=== PATIENT | male | born 1950 | race Caucasian/White ===

== ENCOUNTER 2019-05-25 18:28 | Emergency (ER) | payer MEDICARE, OTHER ==
--- NOTE | 2019-05-25 20:04 | EDM.PDOC ---
ED HPI GENERAL MEDICAL PROBLEM - General Chief Complaint: Upper Extremity Injury/Pain Stated Complaint: FALL, RIGHT RIB PAIN Time Seen by Provider: 05/25/19 19:45 Source of Information: Reports: Patient, Family History Limitations: Reports: No Limitations - History of Present Illness INITIAL COMMENTS - FREE TEXT/NARRATIVE: 68-year-old male with a history of right rib fractures last September resulting in a pneumothorax and a chest tube presents with a reinjury of his right chest when he slipped in the bathtub 2 days ago. He's having significant discomfort of his right lateral chest, pleuritic pain but no significant shortness of breath. His just found out about the injury today and brought him in to have him assessed. No nausea or vomiting, no cough. Onset: Sudden Duration: Day(s): (2 days ago) Location: Reports: Chest (Right lateral chest) Associated Symptoms: Reports: Chest Pain (Right lateral area), Shortness of Breath (Some pleuritic pain but no shortness of breath). Denies: Confusion, Cough, Nausea/Vomiting Right Middle Thoracic Pain Score (Numeric/FACES): 8 - Related Data Allergies Allergy/AdvReac Type Severity Reaction Status Date / Time No Known Allergies Allergy Verified 05/25/19 19:39 Home Meds: Home Meds Finasteride 5 mg PO DAILY 05/25/19 [History] Lisinopril 20 mg PO DAILY 05/25/19 [History] Metoprolol Succinate 100 mg PO DAILY 05/25/19 [History] Tamsulosin [Tamsulosin 24 Hr] 0.4 mg PO DAILY 05/25/19 [History] carBAMazepine [Epitol] 200 mg PO TID 05/25/19 [History] Past Medical History HEENT History: Reports: Impaired Vision Cardiovascular History: Reports: Hypertension Respiratory History: Reports: Pneumothorax Other Gastrointestinal History: C diff Musculoskeletal History: Reports: Back Pain, Chronic, Fracture Other Musculoskeletal History: rib fractures, ankle fracture Neurological History: Reports: Head Trauma, Seizure Other Neuro History: dementia Psychiatric History: Reports: Dementia - Infectious Disease History Infectious Disease History: Reports: C-Difficile - Past Surgical History GI Surgical History: Reports: Colonoscopy Other GI Surgeries/Procedures: fecal implant Musculoskeletal Surgical History: Reports: Carpal Tunnel Other Musculoskeletal Surgeries/Procedures:: lower back surgery, Social & Family History - Tobacco Use Smoking Status *Q: Former Smoker Years of Tobacco use: 2 Used Tobacco, but Quit: Yes Month/Year Tobacco Last Used: 11/1959 - Caffeine Use Caffeine Use: Reports: Coffee, Soda Caffeine Use Comment: seldom coffee use, daily diet soda use - Recreational Drug Use Recreational Drug Use: No Review of Systems - Review of Systems Review Of Systems: See Below Constitutional: Denies: Fever Respiratory: Reports: Pleuritic Chest Pain. Denies: Shortness of Breath, Cough Cardiovascular: Reports: No Symptoms Skin: Denies: Bruising (No significant bruising over injured area) Neurological: Reports: Other (Patient is struggling with worsening dementia) ED EXAM, GENERAL - Physical Exam Exam: See Below Exam Limited By: No Limitations General Appearance: Alert, No Apparent Distress Head: Atraumatic Respiratory/Chest: No Respiratory Distress, Lungs Clear, Other (Very tender over the right lateral chest, especially lower ribs. No crepitus or bruising. A well-healed scar from his previous chest tube is present.) Cardiovascular: Regular Rate, Rhythm Extremities: Normal Inspection Neurological: Alert, Oriented Psychiatric: Normal Affect, Normal Mood Skin Exam: Warm, Dry Course - Vital Signs Last Recorded V/S: Last Vital Signs Temp 96.6 F 05/25/19 19:39 Pulse 54 L 05/25/19 19:39 Resp 16 05/25/19 19:39 BP 156/79 H 05/25/19 19:39 Pulse Ox 96 05/25/19 19:39 - Re-Assessments/Exams Free Text/Narrative Re-Assessment/Exam: 05/25/19 20:03 Because of his previous history and level of concern, the patient was taken to CT for a CT chest without contrast. 05/25/19 20:50 IMPRESSION: 1. Acute nondisplaced fractures of the posterior right 10th and 11th ribs. 2. Dilation of the ascending aorta measuring 4.4 centimeters in diameter. 3. Multiple additional nonacute findings as detailed above. Results of the CT scan were discussed with the patient and his spouse. He was discharged with 15 Tylenol with Codeine for extra pain control and will increase activity as tolerated, returning if worsening. Departure - Departure Time of Disposition: 20:51 Disposition: Home, Self-Care 01 Clinical Impression: Closed rib fracture Qualifiers: Encounter type: initial encounter Rib fracture type: single rib Laterality: right Qualified Code(s): S22.31XA - Fracture of one rib, right side, initial encounter for closed fracture - Discharge Information Instructions: Rib Fracture Referrals: PCP,None [Primary Care Provider] - Forms: ED Department Discharge Care Plan Goals: Activity as tolerated, ibuprofen or naproxen will help with pain and add stronger pain medication if needed. Return anytime if worsening such as difficulty breathing, fever or cough.
--- NOTE | 2019-05-25 20:46 | CRLCT ---
INDICATION: fall, right sided rib pain hx fx ribs in Nov CT CHEST WITHOUT CONTRAST TECHNIQUE: Multidetector CT imaging was performed through the chest without intravenous contrast administration. Coronal and sagittal reconstructions were generated. COMPARISON: None. FINDINGS: Lungs and airways: Mild to moderate bibasilar lung atelectasis or scarring. 2-3 millimeter nodule in the left upper lobe on image 31 of series 3; if clinically indicated, this could be followed as per Fleischner Society guidelines. Pleura and pleural spaces: No pleural effusions or pneumothorax. Heart and mediastinum: Normal heart size. No significant pericardial effusion. No pathologically enlarged mediastinal lymph nodes. Vascular structures: Dilation of the ascending aorta measuring 4.4 centimeters in diameter. Coronary artery calcifications. Chest wall and axillae: No mass or axillary lymphadenopathy. Osseous structures: Subacute healing nondisplaced fractures of the right 6th, 7th, 8th, and 9th ribs. Acute nondisplaced fracture of the posterior right 10th and 11th ribs. Chronic-appearing mild compression fracture of T12. Spinal degenerative changes. Upper abdomen: Unremarkable. IMPRESSION: 1. Acute nondisplaced fractures of the posterior right 10th and 11th ribs. 2. Dilation of the ascending aorta measuring 4.4 centimeters in diameter. 3. Multiple additional nonacute findings as detailed above. Please note that all CT scans at this facility use dose modulation, iterative reconstruction, and\or weight-based dosing when appropriate to reduce radiation to as low as reasonably achievable. ADIS MAGANA MD [employer] [employer] Dictated by Thad Magana MD @ 05/25/2019 8:40:23 PM Dictated by: Thad Magana MD @ 05/25/2019 20:45:32 (Electronically Signed) [facility]
== END 2019-05-25 20:51 | disposition home or self-care (01) ==
LOC: JP.ED 18:28
DX: S22.31XA Fracture of one rib, right side, initial encounter for closed fracture (principal); I10 Essential (primary) hypertension; Z87.891 Personal history of nicotine dependence; Z79.899 Other long term (current) drug therapy; W01.0XXA Fall on same level from slipping, tripping and stumbling without subsequent striking against object, initial encounter
CPT/HCPCS: 71250; 99283; 99283-25